=== PATIENT | female | born 1925 | race Caucasian/White ===

== ENCOUNTER → 2016-04-18 | Outpatient (CLI) | payer OTHER, MEDICARE ==
[~2016-04-18] MED LIST: ASPI81TA21 PO; CALC600T9 PO; CHOL200010 PO; DIGO0.1267 PO; DIGO0.2576 PO; METO1TAB31 PO; RIVA1.5T PO; SENNTAB23 PO
--- NOTE | 2016-04-18 10:18 | DIAGNOSTIC IMAGING REPORT ---
SINUS CT CT DOSE: 603.05 mGy.cm HISTORY: Sinusitis. Pain. CHRONIC SINUSITIS TECHNIQUE: Multiaxial CT images of the paranasal sinuses were performed and reformatted in the coronal plane without the use of contrast. COMPARISON: None. FINDINGS: The frontal sinuses, ethmoid air cells, sphenoid sinuses, and bilateral maxillary antra are clear. The mastoid air cells are clear. The bilateral ostiomeatal units are patent. The nasal septum is midline. The orbits are unremarkable. IMPRESSION: The paranasal sinuses and mastoid air cells are clear. Electronically signed by: Emmanuel Collazo M.D. 04/18/2016 10:16 AM Dictated Date/Time: 04/18/2016 10:14 AM
== END | disposition home or self-care (01) ==
LOC: C.CTS 10:02
PROVIDERS: ATTEND Otolaryngology
DX: J32.9 Chronic sinusitis, unspecified (principal)